=== PATIENT | female | born 1945 | race Caucasian/White ===

== ENCOUNTER → 2017-05-17 | Outpatient (CLI) | payer OTHER ==
[~2017-05-17] MED LIST: B COMPLEX1 EACH PO; BIOTIN5 MG PO; CELEXA 20 MG TA20 MG PO; ESTRACE0.5 MG PO; FLAX OIL1000 MG PO; IBUPROFEN 800800 M1; LIPITOR40 MG PO; MELATONIN5 M1 PO; MOBIC7.5 MG PO; MULTI VITAMIN1 EACH PO; NORCO 5-325 TA1 EACH PO; ORPHENADRINE C100 M2 PO; PRILOSEC20 MG PO; TRAMADOL 50 MG50 MG PO; ZESTORETIC 20-1 EAC3 PO
== END ==
LOC: RAD 15:02
DX: M47.892 Other spondylosis, cervical region (principal)

== ENCOUNTER → 2018-04-18 | Outpatient (CLI) | payer OTHER | LOC: ULTRA 09:08 | DX: K76.9 Liver disease, unspecified (principal); Z90.49 Acquired absence of other specified parts of digestive tract ==

== ENCOUNTER → 2018-05-13 | Outpatient (CLI) | payer OTHER | LOC: MRI 04-25 11:24 | DX: K76.89 Other specified diseases of liver (principal); M47.814 Spondylosis without myelopathy or radiculopathy, thoracic region; M41.84 Other forms of scoliosis, thoracic region ==

== ENCOUNTER → 2018-12-20 | Outpatient (CLI) | payer OTHER | LOC: RAD 11:42 | DX: M47.22 Other spondylosis with radiculopathy, cervical region (principal); M48.02 Spinal stenosis, cervical region ==

== ENCOUNTER → 2019-07-16 | Outpatient (CLI) | payer OTHER | LOC: RAD 09:57 | DX: R10.10 Upper abdominal pain, unspecified (principal); M41.86 Other forms of scoliosis, lumbar region; K22.9 Disease of esophagus, unspecified; Z88.8 Allergy status to other drugs, medicaments and biological substances; Z88.2 Allergy status to sulfonamides; Z90.49 Acquired absence of other specified parts of digestive tract ==

== ENCOUNTER → 2019-10-09 | Outpatient (CLI) | payer OTHER | LOC: RAD 13:48 | DX: M47.26 Other spondylosis with radiculopathy, lumbar region (principal); M51.16 Intervertebral disc disorders with radiculopathy, lumbar region; M41.86 Other forms of scoliosis, lumbar region ==

== ENCOUNTER → 2020-07-19 | Outpatient (CLI) | payer OTHER | LOC: RAD 12:34 | PROVIDERS: ATTEND Family Medicine | DX: M16.11 Unilateral primary osteoarthritis, right hip (principal) ==